=== PATIENT | male | born 1990 | race Caucasian/White ===

== ENCOUNTER 2021-12-09 23:54 | Emergency (ER) | payer OTHER ==
[~2021-12-09] VITALS: Ht 195.6 cm; Wt 95.5 kg
[2021-12-10 00:24] VITALS: BP 110/62
== END 2021-12-10 00:26 ==
LOC: ER 23:56
DX: V98.8XXA Other specified transport accidents, initial encounter; Y93.89 Activity, other specified; Y92.89 Other specified places as the place of occurrence of the external cause; Y99.8 Other external cause status
CPT/HCPCS: 99283